=== PATIENT | male | born 1985 | race Caucasian/White ===

== ENCOUNTER 2025-02-06 00:58 | Day surgery (SDC) | payer OTHER, SELFPAY ==
--- NOTE | 2025-01-24 13:38 | SUR.PREOP ---
[facility] has started construction of its new state of the art ER which will open Spring 2026. With this, we anticipate parking may be a challenge for some our surgical patients and families. Parking spaces are limited but are available for all Surgical, obstetrics, and ER patients sharing this lot. If you arrive and find you are having a hard time finding a parking space, please note that we understand the challenges, please drive around the hospital and park near Hospital Entrance 1. When you enter this entrance, you can ask a volunteer to direct or take you back to the surgical waiting area to check in. We appreciate everyone?s understanding of these expected challenges while we build for your future. Report to the Outpatient Waiting Room, entrance under the green pavilion located off [address], at time _6AM_ on date _02/06/25_. Planned Procedure Time: _730AM_.? Time changes happen often and if your time is changed the preop area will call you the afternoon before. - You and your visitor will be asked to self-screen and do not enter if you have any COVID symptoms. Please call surgeon if you need to reschedule. - A mask is optional within the hospital at this time. Patients may have clear liquids (water, carbonated beverages, clear teas, apple juice) until 3 hours prior to surgery with a maximum of 20 ounces. - No food from midnight until time of surgery and no smoking, or chewing tobacco (or any form of nicotine). No chewing gum, candy or mints. Take only the following medications with a SIP of water on the morning of surgery: _citalopram, (alprazolam if needed)__ DO NOT STOP ANY OF YOUR OTHER PRESCRIPTION MEDICATIONS PRIOR TO SURGERY EXCEPT THE FOLLOWING Hold all vitamins and supplements for 3 days per anesthesiologist. Medications to discontinue per physician _N/a_ Date to take last dose_n/a__ Please no make-up, nail burmese, hairspray, perfume, deodorant, or body powder the day of surgery.? No jewelry (including any body piercings) or valuables the day of surgery, leave them at home.? Please take a shower or bath the night before, or the morning of, surgery with an antibacterial soap.? Wear comfortable, loose fitting clothing.? - Jewelry must be removed prior to entering the operating room.? Rings and piercings that are not removed may be cut off. - The hospital will not accept responsibility for valuables.? - Please leave all valuables, including medications, at home the day of surgery. If you are going home after surgery, a licensed moving van driver must drive you home.? - NO public transportation without another adult if you receive anesthesia. - We recommend that an adult stay with you for 24 hours following discharge. - We also recommend that you do not drive, make important decision, drink alcoholic beverages, or take any drugs that were not prescribed by your health care provider for at least 24 hours after your discharge time. Follow any additional instructions given to you from your surgeon. Telephone instructions given to _Jam_and asked if any additional questions and then verbalized understanding. Patient advised to call surgeon office or pre surgery nurse liaison [phone] if any additional questions.
[2025-01-24 13:42] VITALS: BMI 32.3
[2025-02-06] VITALS (10 sets, daily range): BP systolic 107–129; BP diastolic 47–86; PULSE 71–98; RESP 11–18; TEMP 36.1–36.6; O2SAT 90–100
--- OUTSIDE RECORDS SUMMARY | 2025-02-06 05:27 | XMS_ITS | Clinical Summary ---
Author Organization [facility] Address [address] [place] [address] Care Team Providers Care Toy Stuffer Name Role Phone Eleuterio Covarrubias MD Primary Care Provider [phone] Allergies No known active allergies Medications pantoprazole EC 20 MG tablet Take 1 tablet (20 mg total) by mouth daily. Active citalopram 10 MG tablet Take 1 tablet (10 mg total) by mouth daily. Active atorvastatin (LIPITOR) 10 MG tablet 06/14/2022 Active ACCUTANE 40 MG Cap 06/18/2022 Active loratadine (CLARITIN) 10 MG tablet Take 1 tablet (10 mg total) by mouth as needed for Allergies. Active Active Problems No known active problems Encounters Date Type Department Care Team Description 01/07/2025 2:23 PM CDT - 01/07/2025 11:59 PM CDT Hospital Encounter [facility] [address] [place] [address] Jaxon Eller NP Obstructive Sleep Apnea Discharge Disposition: Home or Self Care (Routine Discharge) 01/07/2025 Travel 12/31/2024 Transcribe Orders [facility] [address] [place] [address] Jaxon Eller NP from Last 3 Months Immunizations Immunization Administration Dates Next Due Influenza Adult (Generic) 02/22/2022 MODERNA COVID-19 (12+) MRNA, LNP-S, PF, 100 MCG/ 0.5 ML DOSE 06/26/2020,05/29/2020 Family History Medical History Relation Comments Breast Cancer Maternal Aunt Breast Cancer Mother Relation Status Comments Maternal Aunt Alive Mother Social History Tobacco Use Types Packs/Day Years Used Date Smoking Tobacco: Never Smokeless Tobacco: Former Tobacco Cessation:Counseling Given: Not Answered Alcohol Use Standard Drinks/Week Comments Yes 0 (1 standard drink = 0.6 oz pur e alcohol) PHQ-2 Answer Date Recorded Patient Health Questionnaire-2 Score 0 09/09/2022 Sex and Gender Information Value Date Recorded Sex Assigned at Not on file Legal Sex Male 11:19 PM CDT Gender Identity Not on file Sexual Orientation Not on file Last Filed Vital Signs Vital Sign Reading Time Taken Comments Blood Pressure 112/74 09/09/2022 9:18 AM CDT Pulse 94 09/09/2022 9:18 AM CDT Temperature 36.3 C (97.3 F) 09/09/2022 9:18 AM CDT Respiratory Rate 20 09/09/2022 9:18 AM CDT Oxygen Saturation 97% 09/09/2022 9:18 AM CDT Inhaled Oxygen Concentration - - Weight 97.2 kg (214 lb 3.2 oz) 09/09/2022 9:18 A M CDT Height 177.8 cm (5' 10) 09/09/2022 9:18 AM CDT Body Mass Index 30.73 09/09/2022 9:18 AM CDT Plan of Treatment Health Maintenance Due Date Last Done Comments Annual Physical 1989 Hepatitis C 2004 DTaP, Tdap and Td Vaccines ( 1 - Tdap) 2005 Hepatitis B Vaccines (1 of 3 - 19+ 3-dose series) 2005 HPV Vaccines (1 - 3-dose SCD M series) 2013 COVID-19 Vaccine ( - 2024-2 6 season) 2024 06/26/2020, 05/29/2020 Influenza Adult (#1) 2024 02/22/2022 Hepatitis A Vaccines Aged Out No long er eligible based on patient's age to complete this topic Meningococcal B Vaccine Aged Out No l onger eligible based on patient's age to complete this topic Meningococcal Vaccine Aged Out No justina dion eligible based on patient's age to complete this topic Pneumococcal Vaccine: Pediatrics (0 to 5 Years) and At-Risk Patients (6 to 49 Years) Aged Out No longer eligible b ased on patient's age to complete this topic RSV Immunizations Under 20 Months Aged Out No longer eligible b ased on patient's age to complete this topic Procedures Procedure Name Priority Date/Time Associated Diagnosis Comments HOME SLEEP STUDY - WATCHPAT Routine 01/07/2025 5:30 PM CDT CHERYL (obstructive sleep apnea) from Last 3 Months Results * Home Sleep Study - WatchPat ([id number]) (01/07/2025 5:30 PM CDT) Narrative [facility] - 01/07/2025 5:30 PM CDT Leonardo Joyce MD 01/14/2025 3:52 PM Patient Information First Name: JAM Last Name: CHANCE ID: [id number] Date: 1985 Age: 39 Gender: Male BMI: 30.6 (W=214 lb, H=5' 10) Sleep Study Information Study Date:01/10/2025 Referring Physician Information First Name: Last Name: JAXON ELLER 5.4.84.4 / 4.2.1210 / 84 S/H/A Version: WATCHPAT HOME SLEEP APNEA TEST REPORT SUMMARY DATA SLEEP STUDY/ARCHITECTURE: This patient was studied using a WatchPAT home sleep study device, The evaluation was initiated on 01/10/2025 at 9:54:49 PM and was stopped at 5:52:19 AM. The total recording time was 7 hrs, 57 min with total sleep evaluation of 7 hrs, 31 min. ANALYSIS: (pAHI = PAT Apnea-Hypopnea Index, pRDI = PAT Respiratory Disturbance Index) Total pAHI 4%: 7.2 Total pRDI: 10.9 Average Sleep Oxygen Saturation: 95 Minimum Sleep Oxygen Saturation: 84 Mean Heart Rate During Sleep: 69 Afib Total Duration: Not detected Afib Longest Duration: Not detected (Afib events < 60 seconds may be artifact) Premature Beats per Minute: <0.1 Rev. Printed on:01/14/2025 01/10/2025,[id number],1985,Male *The automatic analysis events or stages have been edited. 539 Page 1 of 2 Sleep Study Report SUMMARY/DIAGNOSIS 1.) Mild Obstructive Sleep Apnea. RECOMMENDATIONS [place] treatment option should be discussed with the patient and a plan for treatment should be made. Potential health consequences and medical importance of treatment should also be discussed with the patient. This patient should maintain good sleep hygiene techniques, maintain a consistent sleep/wake schedule with adequate hours of sleep, and avoid hazardous activities when sleepy. The patient should be cautioned about factors that may potentially exacerbate snoring and other sleep-related issues, such as SAW FEEDER depressants, especially at bedtime. Raw data reviewed and electronically signed by: Leonardo Joyce on 01/14/2025 3:51:15 PM at 8:51:21PM, [facility] us Jaxon Eller [employer] [facility] ORDERABLES Final Result [facility] [address] [place] [address], from Last 3 Months Insurance Care Teams Toy Stuffer Relationship Specialty Start Date End Date Eleuterio Covarrubias MD [address] [place] [id number] PCP - General FAMILY PRACTICE 05/12/22
[2025-02-06] MEDS: ACETAMINOPHEN 500 MG TABLET 1000 MG PO (06:40)
[2025-02-06] MEDS: LACTATED RINGERS 1,000 ML 30 ML IV CONT ×2 (06:45→09:46)
--- NOTE | 2025-02-06 06:58 | P.PNAN_ITS ---
Anes - Initial Pre Proc Eval Procedure: Operation Date: 02/06/25 07:30 Proposed Procedures p Left Radical Orchiectomy - Eliseo Prado MD s Right Vasectomy - Eliseo Prado MD Date/Time: 02/06/25 06:58 Surgeon: Eliseo Prado MD Pre Op Diagnosis: Mass left testes, Male Serilization Patient Data Age: 39 Gender: M Height: 1.78 m Weight: 102.2 kg Allergies Allergy/AdvReac Type Severity Reaction Status Date / Time No Known Allergies Allergy Verified 02/06/25 06:55 Home Medications ?Medication ?Instructions ?Recorded ?Confirmed ?Type citalopram 40 mg tablet 40 mg PO DAILY #90 tabs 12/2102/06/25 Rx dextroamphetamine-amphetamine ER 20 mg PO DAILY 02/06/25 History 20 mg 24hr capsule,extend release (Adderall XR) omeprazole 20 mg capsule,delayed 20 mg PO DAILY #90 ca ps 01/18/25 02/06/25 Rx release ropinirole 1 mg tablet 1.3 mg (1.3 x 1 mg) PO QHS # 135 01/18/25 02/06/25 Rx tabs alprazolam 0.5 mg tablet 0.5 mg PO DAILY PRN anxiety 01/24/25 02/06/25 History Patient hx anesthesia problems: none Family hx anesthesia problems: none Results Review: All pre-operative results and documents have been reviewed as part of the pre- operative evaluation. [facility] Past Medical History Medical History GERD (gastroesophageal reflux disease) Alopecia RLS (restless legs syndrome) ADHD Right wrist injury Hyperlipidemia Anxiety Surgical History Surgical History No pertinent past surgical history Family History Family History Father Alcoholism Hypertension Mother Lung cancer Depression Grandparent Cancer Social History Social History Social History: 04/30/24 very confident with medical forms Smoking status: Never smoker Smokeless tobacco user: chewing tobacco Smoking end date: 03/21/19 Additional smoking assessment comments: quit 5.5 years ago Alcohol intake: current Drinks per week: 10 Alcohol use details: beer Substance use: never Do You Feel Safe in your Home?: Yes Lack of Transportation: No Lack of Food: Never True Current Housing: I Have Housing Concerned About Future Housing: No Difficulty Paying Gas/Electric Bills: No Difficulty Paying for Meds: No Currently Unemployed: No Education: Bachelor's Degree Difficulty w/ Childcare or Family Care: No Living arrangements: with family Occupation/Education: occupation 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 ADHD meds/anxiety, recently dx CHERYL not on CPAP yet, active w gym workouts, no cp or sob. Informed Consent: The patient's anesthetic plan and its attendant risks and benefits were discussed with the patient/family/POA. Questions were solicited and answers provided to the satisfaction of the patient/family/POA.
--- NOTE | 2025-02-06 07:25 | WPDHPUPDATE1 ---
History and Physical Update Update Date/Time: 02/06/25 07:25 History and Physical has been reviewed, including an updated exam of the patient. There are NO changes in the patient's condition. Risks, benefits, and alternatives have been discussed and questions answered. Patient agrees to proceed with procedure.
--- NOTE | 2025-02-06 07:40 | SUR.PREOP ---
SURGEON DELAYS SELF. PATIENT AND SPOUSE NOTIFIED.
[2025-02-06] MEDS: ceFAZolin 2 GM in SODIUM CHLORIDE 0.9% IV 50 ML 100 ML IVPB (08:11)
--- NOTE | 2025-02-06 08:48 | WNDPHOTO ---
PHOTO ONLY - See Nursing Notes and/ or assessments for documentation.
[2025-02-06] MEDS: BUPivacaine HCL 0.5% 10 ML AMP 20 ML INFILTRATE (08:51)
--- NOTE | 2025-02-06 09:27 | S_PTH ---
PATIENT: Jam Ellington LOC: [facility] U#:[id number] AGE/SX: 39/M ROOM: RE02/06/[address]: Eliseo Prado MD : 1985 BED: DIS: 02/06/2025 SPEC #: [id number] RECD: 02/06/25 10:15 STATUS: DEBO NAVARRO #: [id number] VERONICA: 02/06/25 09:[address]: Eliseo Prado DEPT: [facility] Surgical RECD BY: Sol Ann ENTERED: 02/06/25 10:15 SP TYPE: Surgical OTHR DR: Salina García PA-C Tissues: A - Testis B - Vas Deferens Procedures: Gross Exam Level 1 Hematoxylin and Eosin Stain Gross and Microscopic Level 4
--- NOTE | 2025-02-06 09:47 | P.OP_ITS ---
Procedure Note - Detailed Date of Procedure 02/06/25 Pre-op Diagnosis Mass left testes, Male Serilization Post-op Diagnosis Same Procedure Performed Left radical orchiectomy Right vasectomy Surgeon Eliseo Prado MD Anesthesia General Description of Procedure Informed consent was obtained. Patient taken to the operating room. He was given preoperative IV antibiotics. He was induced with anesthesia. He was shaved and then prepped normal sterile fashion. A 4cm incision was made 1cm above the external ring on left. Without bluntly dissected down the Andrea's fascia which was opened. We then dissected carefully down to the external oblique fascia and identified the spermatic cord. The cord was encircled [place] drain. We then delivered the left testicle through the incision. We cauterized the gubernacular attachments. We then made a incision in the external oblique fascia 2cm above the external inguinal ring. The spermatic cord was then dissected up to the internal ring. We then placed clamps over the spermatic cord. The cord was cut and left testicle sent as specimen. Using 0 silk suture ligation the spermatic cord was then oversewn leaving the distal and long. We did place a 0 silk suture on adjacent cremasteric musculature for hemostasis. There was good hemostasis. We then released the spermatic cord and it entered back through the internal ring. We then copiously irrigated. We then closed the external oblique fascia with interrupted 0 Vicryl sutures taking care not to injure the ilioinguinal nerve. We ensured there was good hemostasis in the scrotum. We then closed Andrea's fascia with 2-0 Vicryl suture. Deep dermal layer with 3-0 Vicryl suture. Skin was closed with a running subcuticular 4-0 Monocryl closure. Glue was placed over the incision. We then focused our attention in the right lateral scrotum and identified the vas deferens to the right testicle. A puncture was made in the scrotal skin and we then the vas deferens away from surrounding structures. A 2cm portion of vas deferens was excised the ends cauterized and a 3-0 chromic stitch was placed on each end. A fascial interposition was performed with 3-0 chromic. We then released the vas deferens. The testicle returned to its orthotopic position. There was good hemostasis. Skin was closed with glue. Scrotal support was placed. Patient taken to recovery room in stable condition Drains No Packing No Pathology Yes (Left testicle and cord, right vas deferens) Condition Stable Disposition PACU
[2025-02-06] MEDS: fentaNYL CITRATE INJ (*CRX) 100 MCG/2 ML VIAL 25 MCG IV PUSH ×4 (10:13→10:41)
[2025-02-06] MEDS: oxyCODONE HCL (*CRX) 5 MG TAB IR PO (11:07)
== END 2025-02-06 11:55 | disposition home or self-care (01) ==
PROVIDERS: PCP Physician Assistant Medical; Visit Provider Urology
PROC: (CPT 54520; principal; 2025-02-06 07:30)
PROC: (CPT 55250; 2025-02-06 07:30)
DX: C62.12 Malignant neoplasm of descended left testis (principal); E78.5 Hyperlipidemia, unspecified; F41.9 Anxiety disorder, unspecified; K21.9 Gastro-esophageal reflux disease without esophagitis; G25.81 Restless legs syndrome; G47.33 Obstructive sleep apnea (adult) (pediatric); F90.9 Attention-deficit hyperactivity disorder, unspecified type; E66.9 Obesity, unspecified; Z68.31 Body mass index [BMI] 31.0-31.9, adult; Z87.891 Personal history of nicotine dependence; Z80.3 Family history of malignant neoplasm of breast; Z80.1 Family history of malignant neoplasm of trachea, bronchus and lung
CPT/HCPCS: 55250; 54530; 88300; 88305; J0690; A9270; J1100; J2250; J2405; J2704; J3010; J7120